=== PATIENT | female | born 1935 | race Asian ===

== ENCOUNTER → 2017-02-27 | Outpatient (CLI) | payer MEDICARE, OTHER ==
[~2017-02-27] MED LIST: ALEN70TA48 PO; ALLO100T PO; CALC500T62 PO; CLON1PAT16 TD; ERGO400T3 PO; FURO40 PO; HYDR-4173 PO; INSLAN SQ; LISI-660 PO; METO-323 PO; MULT240L3 PO; PANT40TA25 PO; SIMV-260 PO
[2017-02-27 11:17] LABS: BASOPHILS # (AUTO) 0.03 K/uL (0.00-0.20); BASOPHILS % (AUTO) 0.5 % (0.0-2.0); EOSINOPHILS # (AUTO) 0.44 K/uL (0.00-0.70); EOSINOPHILS % (AUTO) 6.72 % (1.0-6.0); HEMATOCRIT 36.5 % (36-46); HEMOGLOBIN 12.1 g/dL (12.0-16.0); LYMPHOCYTES # (AUTO) 1.4 K/uL (1.0-4.8); MEAN CORPUSCULAR HEMOGLOBIN 30.3 pg (26.0-34.0); MEAN CORPUSCULAR HGB CONC 33.2 G/dL (31.0-37.0); MEAN CORPUSCULAR VOLUME 91 fL (80-100); MONOCYTES # (AUTO) 0.4 K/uL (0.1-1.0); MONOCYTES % (AUTO) 5.9 % (2.0-9.0); NEUTROPHILS # (AUTO) 4.2 K/uL (1.8-7.7); NEUTROPHILS % (AUTO) 64.8 % (40.0-70.0); PLATELET COUNT (AUTO) 303 K/uL (150-450); RED BLOOD CELL COUNT(AUTO) 4.01 MIL/uL (4.00-5.20); RED CELL DISTRIBUTION WIDTH 16.1 % (11.5-14.5); WHITE BLOOD COUNT (AUTO) 6.5 K/uL (4.5-11.0)
[2017-02-27 11:24] LABS: INR 1.1 (0.9-1.1); PROTHROMBIN TIME 11.3 SEC (9.4-11.6)
[2017-02-27 11:24] LABS: APPEARANCE,URINE CLOUDY (CLEAR); GLUCOSE, URINE (UA) NEGATIVE (NEGATIVE); KETONES,URINE NEGATIVE (NEGATIVE); LEUKOCYTE ESTERASE ,URINE TRACE (NEGATIVE); OCCULT BLOOD,URINE NEGATIVE (NEGATIVE); PROTEIN,URINE NEGATIVE (NEGATIVE)
[2017-02-27 11:25] LABS: ANION GAP 9 mmol/L (8-16); CARBON DIOXIDE 27 mmol/L (22-29); CHLORIDE 99 mmol/L (98-107); CREATININE 0.71 mg/dL (0.60-1.30); GLOMERULAR FILTR. RATE CALC > 60 mL/min (>60); POTASSIUM 3.9 mmol/L (3.5-5.1); SODIUM SERUM 135 mmol/L (136-145); UREA NITROGEN, BLOOD 15 mg/dL (7-18)
[2017-02-27 12:35] LABS: RBC,URINE None Seen /HPF (0-2)
[2017-02-27 12:36] LABS: SQUAMOUS EPITHELIAL CELL,UR Few /LPF (None Seen)
== END | disposition home or self-care (01) ==
LOC: LABMN 10:55
PROVIDERS: ATTEND Surgery
DX: L72.3 Sebaceous cyst (principal); N39.0 Urinary tract infection, site not specified; I25.10 Atherosclerotic heart disease of native coronary artery without angina pectoris; D61.9 Aplastic anemia, unspecified; R78.89 Finding of other specified substances, not normally found in blood
CPT/HCPCS: 87086

== ENCOUNTER 2017-09-15 13:01 | Inpatient (IN) | payer MEDICARE, OTHER ==
[~2017-09-15] VITALS: Ht 152.4 cm; Wt 40.8 kg
[~2017-09-15 13:01] MED LIST changes: +CLON1PAT13 TD; -CLON1PAT16 TD; -METO-323 PO; +METO25XL PO
[2017-09-15] MEDS ORDERED: VALS160T2 PO (13:18)
[2017-09-15] MEDS ORDERED: CARV25 PO (13:18)
[2017-09-15] MEDS ORDERED: SIMV-260 PO (13:18)
[2017-09-15] MEDS ORDERED: OMEG10005 PO (13:18)
[2017-09-15] MEDS ORDERED: KDUR10 PO (13:18)
[2017-09-15] MEDS ORDERED: POTA8CAP10 PO (13:18)
[2017-09-15] MEDS ORDERED: ACETAMINOPHEN 1000 MG/ISO-OSM 100 ML IV ONE ×2 (13:45)
[2017-09-15 14:14] LABS: HEMATOCRIT 26.3 % (36-46); MEAN CORPUSCULAR HEMOGLOBIN 30.9 pg (26.0-34.0); MEAN CORPUSCULAR HGB CONC 34.2 G/dL (31.0-37.0); MEAN CORPUSCULAR VOLUME 90 fL (80-100); PLATELET COUNT (AUTO) 273 K/uL (150-450); RED BLOOD CELL COUNT(AUTO) 2.91 MIL/uL (4.00-5.20)
[2017-09-15 14:32] LABS: BAND NEUTROPHILS % (MANUAL) 11 % (1-5); BASOPHILS % (MANUAL) 1 % (0-2); LYMPHOCYTES % (MANUAL) 2 % (22-44); MONOCYTES % (MANUAL) 5 % (2-9); SEGMENTED NEUTROPHILS % 81 % (40-70)
[2017-09-15 14:34] LABS: ALBUMIN 2.9 g/dL (3.4-5.0); BILIRUBIN,TOTAL 0.6 mg/dL (0.1-1.0); CALCIUM, TOTAL 8.1 mg/dL (8.8-10.5); CREATININE 0.96 mg/dL (0.60-1.30); INR 1.2 (0.9-1.1); PROTHROMBIN TIME 12.3 SEC (9.4-11.6); TOTAL PROTEIN, SERUM 6.9 g/dL (6.4-8.2)
[2017-09-15 14:36] LABS: POTASSIUM 2.8 mmol/L (3.5-5.1)
[2017-09-15 14:39] LABS: LACTIC ACID 1.3 mmol/L (0.4-2.0)
[2017-09-15] MEDS ORDERED: POTASSIUM CHL 40 MEQ/D5-0.45NS 1,000 ML IV ONE (15:15)
[2017-09-15] MEDS ORDERED: AZITHROMYCIN 500 MG/NS 250 ML IV ONE (15:15)
[2017-09-15] MEDS ORDERED: IBUPROFEN 400 MG TABLET PO ONE (15:15)
[2017-09-15] MEDS ORDERED: PIPERACILLIN/TAZO 3.375 GM/D5W 50 ML IV ONE (15:15)
[2017-09-15 15:47] LABS: APPEARANCE,URINE TURBID (CLEAR); BILIRUBIN,URINE NEGATIVE (NEGATIVE); GLUCOSE, URINE (UA) NEGATIVE (NEGATIVE); KETONES,URINE NEGATIVE (NEGATIVE); LEUKOCYTE ESTERASE ,URINE SMALL (NEGATIVE); NITRATE,URINE NEGATIVE (NEGATIVE); OCCULT BLOOD,URINE NEGATIVE (NEGATIVE); PROTEIN,URINE POS 1+ (NEGATIVE)
[2017-09-15] MEDS ORDERED: 0.9% SODIUM CHLORIDE 10 ML SYRINGE IVP PRN (16:30)
[2017-09-15] MEDS ORDERED: ACETAMINOPHEN 325 MG TABLET PO PRN (16:30)
[2017-09-15] MEDS ORDERED: SODIUM CHLORIDE 0.9% 2,000 ML IV ONE (16:30)
[2017-09-15 16:47] LABS: BACTERIA,URINE Many /HPF (None Seen); RBC,URINE None Seen /HPF (0-2); SQUAMOUS EPITHELIAL CELL,UR Few /LPF (None Seen)
[2017-09-15 17:31] VITALS: BP 89/41
[2017-09-15] MEDS ORDERED: SODIUM CHLORIDE 0.9% 100 ML ONE (18:21)
[2017-09-15] MEDS ORDERED: INFLUENZA VIRUS VACCINE QVS 2017-18 (3YR+)/PF 60 MCG/0.5 ML SYRINGE IM ONE (19:00)
[2017-09-15 19:37] VITALS: BP 111/52
[2017-09-15] MEDS ORDERED: ALBUTEROL SULFATE 2.5 MG/0.5 ML NEB SOLUTION NEB PRN (21:15)
[2017-09-15] MEDS ORDERED: MAGNESIUM HYDROXIDE SUSPENSION 30 ML UDCUP PO PRN (21:15)
[2017-09-15] MEDS: PIPERACILLIN SODIUM/TAZOBACTAM 2.25 GM in DEXTROSE 5%-WATER 50 ML IV SCH (23:23)
[2017-09-15 23:31] VITALS: BP 96/47
[2017-09-15] MEDS: ACETAMINOPHEN 325 MG TABLET PO PRN (23:31)
[2017-09-16] VITALS (7 sets, daily range): BP systolic 106–129; BP diastolic 47–87
[2017-09-16] MEDS: PIPERACILLIN SODIUM/TAZOBACTAM 2.25 GM in DEXTROSE 5%-WATER 50 ML IV SCH ×4 (03:52→22:20)
[2017-09-16 06:15] LABS: EOSINOPHILS % (AUTO) 0.2 % (1.0-6.0); HEMATOCRIT 25.7 % (36-46); HEMOGLOBIN 8.7 g/dL (12.0-16.0); LYMPHOCYTES % (AUTO) 7.5 % (22.0-44.0); MEAN CORPUSCULAR HEMOGLOBIN 31.1 pg (26.0-34.0); MEAN CORPUSCULAR VOLUME 92 fL (80-100); MONOCYTES # (AUTO) 1.2 K/uL (0.1-1.0); MONOCYTES % (AUTO) 9.1 % (2.0-9.0); NEUTROPHILS % (AUTO) 83.2 % (40.0-70.0); PLATELET COUNT (AUTO) 269 K/uL (150-450); RED CELL DISTRIBUTION WIDTH 14.3 % (11.5-14.5)
[2017-09-16 06:51] LABS: ANION GAP 6 mmol/L (8-16); CALCIUM, TOTAL 8.3 mg/dL (8.8-10.5); CARBON DIOXIDE 25 mmol/L (22-29); CHLORIDE 107 mmol/L (98-107); CREATININE 0.76 mg/dL (0.60-1.30); GLOMERULAR FILTR. RATE CALC > 60 mL/min (>60); GLUCOSE,RANDOM 88 mg/dL (70-110); POTASSIUM 4.7 mmol/L (3.5-5.1); SODIUM SERUM 138 mmol/L (136-145); UREA NITROGEN, BLOOD 12 mg/dL (7-18)
[2017-09-16] MEDS: PANTOPRAZOLE SODIUM 40 MG DR TABLET PO SCH (09:28)
[2017-09-16] MEDS: HEPARIN SODIUM,PORCINE 5,000 UNITS/ML VIAL SQ SCH ×2 (09:28→20:24)
[2017-09-16] MEDS: ASPIRIN 81 MG CHEWABLE TABLET PO SCH (09:28)
[2017-09-16] MEDS: DOCUSATE SODIUM 100 MG CAPSULE PO SCH ×2 (09:28→21:00)
[2017-09-16] MEDS: OXYGEN THERAPY IH SCH ×2 (09:38→20:25)
[2017-09-16] MEDS: ACETAMINOPHEN 325 MG TABLET PO PRN (21:26)
[2017-09-17] VITALS (7 sets, daily range): BP systolic 122–151; BP diastolic 54–92
[2017-09-17] MEDS: PIPERACILLIN SODIUM/TAZOBACTAM 2.25 GM in DEXTROSE 5%-WATER 50 ML IV SCH ×4 (04:58→23:19)
[2017-09-17 05:53] LABS: BASOPHILS % (AUTO) 0.3 % (0.0-2.0); EOSINOPHILS % (AUTO) 1.3 % (1.0-6.0); HEMATOCRIT 24.9 % (36-46); HEMOGLOBIN 8.3 g/dL (12.0-16.0); LYMPHOCYTES # (AUTO) 0.9 K/uL (1.0-4.8); LYMPHOCYTES % (AUTO) 10.5 % (22.0-44.0); MEAN CORPUSCULAR HEMOGLOBIN 30.9 pg (26.0-34.0); MEAN CORPUSCULAR HGB CONC 33.5 G/dL (31.0-37.0); MEAN CORPUSCULAR VOLUME 92 fL (80-100); MONOCYTES # (AUTO) 0.7 K/uL (0.1-1.0); NEUTROPHILS # (AUTO) 7.2 K/uL (1.8-7.7); NEUTROPHILS % (AUTO) 79.9 % (40.0-70.0); PLATELET COUNT (AUTO) 286 K/uL (150-450); RED BLOOD CELL COUNT(AUTO) 2.69 MIL/uL (4.00-5.20); RED CELL DISTRIBUTION WIDTH 14.3 % (11.5-14.5)
[2017-09-17 06:27] LABS: ANION GAP 6 mmol/L (8-16); CALCIUM, TOTAL 8.2 mg/dL (8.8-10.5); CARBON DIOXIDE 27 mmol/L (22-29); CHLORIDE 104 mmol/L (98-107); CREATININE 0.73 mg/dL (0.60-1.30); GLOMERULAR FILTR. RATE CALC > 60 mL/min (>60); GLUCOSE,RANDOM 90 mg/dL (70-110); POTASSIUM 3.1 mmol/L (3.5-5.1); SODIUM SERUM 137 mmol/L (136-145); UREA NITROGEN, BLOOD 7 mg/dL (7-18)
[2017-09-17] MEDS: MULTIVITAMINS WITH MINERALS, THERAPEUTIC TABLET PO SCH (08:37)
[2017-09-17] MEDS: HEPARIN SODIUM,PORCINE 5,000 UNITS/ML VIAL SQ SCH ×2 (08:37→20:12)
[2017-09-17] MEDS: OXYGEN THERAPY IH SCH ×2 (08:37→20:12)
[2017-09-17] MEDS: DOCUSATE SODIUM 100 MG CAPSULE PO SCH ×2 (08:38→20:12)
[2017-09-17] MEDS: ASPIRIN 81 MG CHEWABLE TABLET PO SCH (08:38)
[2017-09-17] MEDS: LACTOBACILLUS ACIDOPHILUS/BULGARICUS TABLET PO SCH (08:38)
[2017-09-17] MEDS: PANTOPRAZOLE SODIUM 40 MG DR TABLET PO SCH (08:38)
[2017-09-17] MEDS ORDERED: SODIUM CHLORIDE 0.9% 250 ML IV ONE (22:27)
[2017-09-18 00:30] VITALS: BP 145/70
[2017-09-18] MEDS: PIPERACILLIN SODIUM/TAZOBACTAM 2.25 GM in DEXTROSE 5%-WATER 50 ML IV SCH ×3 (03:44→16:22)
[2017-09-18 05:42] VITALS: BP 146/67
[2017-09-18 07:12] VITALS: BP 146/65
[2017-09-18] MEDS: OXYGEN THERAPY IH SCH ×2 (08:00→20:00)
[2017-09-18] MEDS: MULTIVITAMINS WITH MINERALS, THERAPEUTIC TABLET PO SCH (08:15)
[2017-09-18] MEDS: ASPIRIN 81 MG CHEWABLE TABLET PO SCH (08:15)
[2017-09-18] MEDS: HEPARIN SODIUM,PORCINE 5,000 UNITS/ML VIAL SQ SCH ×2 (08:15→20:13)
[2017-09-18] MEDS: DOCUSATE SODIUM 100 MG CAPSULE PO SCH ×2 (08:15→20:12)
[2017-09-18] MEDS: LACTOBACILLUS ACIDOPHILUS/BULGARICUS TABLET PO SCH (08:15)
[2017-09-18] MEDS: PANTOPRAZOLE SODIUM 40 MG DR TABLET PO SCH (08:17)
[2017-09-18 09:05] LABS: BASOPHILS # (AUTO) 0.02 K/uL (0.00-0.20); BASOPHILS % (AUTO) 0.3 % (0.0-2.0); EOSINOPHILS # (AUTO) 0.12 K/uL (0.00-0.70); EOSINOPHILS % (AUTO) 1.79 % (1.0-6.0); HEMATOCRIT 28.4 % (36-46); HEMOGLOBIN 9.5 g/dL (12.0-16.0); LYMPHOCYTES # (AUTO) 1.3 K/uL (1.0-4.8); MEAN CORPUSCULAR HEMOGLOBIN 30.5 pg (26.0-34.0); MEAN CORPUSCULAR HGB CONC 33.3 G/dL (31.0-37.0); MEAN CORPUSCULAR VOLUME 91 fL (80-100); MONOCYTES # (AUTO) 0.4 K/uL (0.1-1.0); MONOCYTES % (AUTO) 5.8 % (2.0-9.0); PLATELET COUNT (AUTO) 412 K/uL (150-450); RED CELL DISTRIBUTION WIDTH 14.6 % (11.5-14.5)
[2017-09-18 09:13] LABS: ANION GAP 6 mmol/L (8-16); CALCIUM, TOTAL 8.5 mg/dL (8.8-10.5); CARBON DIOXIDE 28 mmol/L (22-29); CHLORIDE 101 mmol/L (98-107); CREATININE 0.69 mg/dL (0.60-1.30); GLOMERULAR FILTR. RATE CALC > 60 mL/min (>60); GLUCOSE,RANDOM 120 mg/dL (70-110); POTASSIUM 3.7 mmol/L (3.5-5.1); SODIUM SERUM 135 mmol/L (136-145); UREA NITROGEN, BLOOD 4 mg/dL (7-18)
[2017-09-18 11:31] VITALS: BP 144/67
[2017-09-18 15:05] VITALS: BP 125/71
[2017-09-18] MEDS ORDERED: CARV40CR PO (16:13)
[2017-09-18 20:00] VITALS: BP 148/71
[2017-09-18] MEDS: CefTRIAXone 1 GM/DEXTROSE 50 ML IV SCH (22:56)
[2017-09-19] VITALS (7 sets, daily range): BP systolic 127–159; BP diastolic 50–78
[2017-09-19 00:24] LABS: GLUCOMETER DEV NAME(LOC) 5N 1M; GLUCOSE,POINT OF CARE 97 MG/DL (70-110)
[2017-09-19 07:33] LABS: ALBUMIN 2.3 g/dL (3.4-5.0); BILIRUBIN,TOTAL 0.3 mg/dL (0.1-1.0)
[2017-09-19 07:40] LABS: BILIRUBIN,DIRECT 0.1 mg/dL (0.00-0.20)
[2017-09-19] MEDS: OXYGEN THERAPY IH SCH ×2 (08:00→20:00)
[2017-09-19] MEDS: DOCUSATE SODIUM 100 MG CAPSULE PO SCH ×2 (08:27→20:28)
[2017-09-19] MEDS: ASPIRIN 81 MG CHEWABLE TABLET PO SCH (08:27)
[2017-09-19] MEDS: HEPARIN SODIUM,PORCINE 5,000 UNITS/ML VIAL SQ SCH ×2 (08:28→20:28)
[2017-09-19] MEDS: MULTIVITAMINS WITH MINERALS, THERAPEUTIC TABLET PO SCH (08:28)
[2017-09-19] MEDS: LACTOBACILLUS ACIDOPHILUS/BULGARICUS TABLET PO SCH (08:28)
[2017-09-19] MEDS: PANTOPRAZOLE SODIUM 40 MG DR TABLET PO SCH (08:28)
[2017-09-19] MEDS: CefTRIAXone 1 GM/DEXTROSE 50 ML IV SCH (22:16)
[2017-09-20 05:06] VITALS: BP 144/64
[2017-09-20 06:33] LABS: ANION GAP 8 mmol/L (8-16); CALCIUM, TOTAL 8.8 mg/dL (8.8-10.5); CARBON DIOXIDE 29 mmol/L (22-29); CHLORIDE 102 mmol/L (98-107); CREATININE 0.78 mg/dL (0.60-1.30); GLOMERULAR FILTR. RATE CALC > 60 mL/min (>60); GLUCOSE,RANDOM 88 mg/dL (70-110); SODIUM SERUM 139 mmol/L (136-145); UREA NITROGEN, BLOOD 8 mg/dL (7-18)
[2017-09-20 06:48] LABS: BASOPHILS % (AUTO) 0.8 % (0.0-2.0); EOSINOPHILS % (AUTO) 5.9 % (1.0-6.0); HEMATOCRIT 29.5 % (36-46); HEMOGLOBIN 9.9 g/dL (12.0-16.0); LYMPHOCYTES % (AUTO) 17.4 % (22.0-44.0); MEAN CORPUSCULAR HEMOGLOBIN 30.7 pg (26.0-34.0); MEAN CORPUSCULAR HGB CONC 33.4 G/dL (31.0-37.0); MEAN CORPUSCULAR VOLUME 92 fL (80-100); MONOCYTES # (AUTO) 0.4 K/uL (0.1-1.0); MONOCYTES % (AUTO) 6.6 % (2.0-9.0); NEUTROPHILS # (AUTO) 4.1 K/uL (1.8-7.7); NEUTROPHILS % (AUTO) 69.3 % (40.0-70.0); PLATELET COUNT (AUTO) 567 K/uL (150-450); RED BLOOD CELL COUNT(AUTO) 3.21 MIL/uL (4.00-5.20); RED CELL DISTRIBUTION WIDTH 14.4 % (11.5-14.5)
[2017-09-20 07:46] VITALS: BP 142/63
[2017-09-20] MEDS: OXYGEN THERAPY IH SCH (08:00)
[2017-09-20] MEDS: ASPIRIN 81 MG CHEWABLE TABLET PO SCH (08:13)
[2017-09-20] MEDS: DOCUSATE SODIUM 100 MG CAPSULE PO SCH (08:13)
[2017-09-20] MEDS: LACTOBACILLUS ACIDOPHILUS/BULGARICUS TABLET PO SCH (08:13)
[2017-09-20] MEDS: HEPARIN SODIUM,PORCINE 5,000 UNITS/ML VIAL SQ SCH (08:14)
[2017-09-20] MEDS: PANTOPRAZOLE SODIUM 40 MG DR TABLET PO SCH (08:14)
[2017-09-20] MEDS: MULTIVITAMINS WITH MINERALS, THERAPEUTIC TABLET PO SCH (08:14)
[2017-09-20] MEDS: ACETAMINOPHEN 325 MG TABLET PO PRN (08:20)
[2017-09-20 11:31] VITALS: BP 144/59
[2017-09-20] MEDS: CefTRIAXone 1 GM/DEXTROSE 50 ML IV SCH (15:13)
[2017-09-20 15:27] VITALS: BP 135/63
== END 2017-09-20 17:00 | DRG 871 ==
LOC: EMS 13:06 → 5S 16:55
PROVIDERS: ADMIT Internal Medicine; ATTEND Internal Medicine
PROC: 3E0234Z Introduction of Serum, Toxoid and Vaccine into Muscle, Percutaneous Approach (ICD-10-PCS; principal; 2017-09-19)
DX: A41.9 Sepsis, unspecified organism (principal); E43 Unspecified severe protein-calorie malnutrition; I11.0 Hypertensive heart disease with heart failure; E86.0 Dehydration; I50.22 Chronic systolic (congestive) heart failure; I35.1 Nonrheumatic aortic (valve) insufficiency; J44.9 Chronic obstructive pulmonary disease, unspecified; R64 Cachexia; Z68.1 Body mass index [BMI] 19.9 or less, adult; N39.0 Urinary tract infection, site not specified; B96.20 Unspecified Escherichia coli [E. coli] as the cause of diseases classified elsewhere; I25.10 Atherosclerotic heart disease of native coronary artery without angina pectoris; J45.909 Unspecified asthma, uncomplicated; H40.9 Unspecified glaucoma; E87.6 Hypokalemia; E78.00 Pure hypercholesterolemia, unspecified; M19.90 Unspecified osteoarthritis, unspecified site; E78.5 Hyperlipidemia, unspecified; Z87.440 Personal history of urinary (tract) infections; Z95.1 Presence of aortocoronary bypass graft; Z79.899 Other long term (current) drug therapy; Z87.01 Personal history of pneumonia (recurrent); I25.2 Old myocardial infarction; Z87.891 Personal history of nicotine dependence; Z90.49 Acquired absence of other specified parts of digestive tract; Z79.4 Long term (current) use of insulin; Z82.49 Family history of ischemic heart disease and other diseases of the circulatory system; Z23 Encounter for immunization
CPT/HCPCS: 74176; 82962; 83605; 84132; 87040; 87086; 90471; 93306; 96365; 96366; 96367; 96375; 97162; 97530; 99291; J0131; J0456; J0696; J1644; J2543; J3480; J7030; J7050; J7060

== ENCOUNTER 2017-09-30 10:34 | Inpatient (IN) | payer MEDICARE, OTHER ==
[~2017-09-30] VITALS: Ht 152.4 cm; Wt 42.1 kg
[~2017-09-30 10:34] MED LIST changes: -ALEN70TA48 PO; -ALLO100T PO; -CALC500T62 PO; +CARV40CR PO; -CLON1PAT13 TD; -ERGO400T3 PO; -FURO40 PO; -INSLAN SQ; +KDUR10 PO; -LISI-660 PO; -METO25XL PO; -MULT240L3 PO; +OMEG10005 PO; -PANT40TA25 PO; +VALS160T2 PO
[2017-09-30] MEDS ORDERED: SODIUM CHLORIDE 0.9% 500 ML IV ONE ×3 (11:00→15:45)
[2017-09-30 11:48] LABS: BASOPHILS % (AUTO) 0.3 % (0.0-2.0); EOSINOPHILS % (AUTO) 0.2 % (1.0-6.0); HEMATOCRIT 28.4 % (36-46); HEMOGLOBIN 9.7 g/dL (12.0-16.0); LYMPHOCYTES # (AUTO) 0.7 K/uL (1.0-4.8); LYMPHOCYTES % (AUTO) 6.4 % (22.0-44.0); MEAN CORPUSCULAR HEMOGLOBIN 30.8 pg (26.0-34.0); MEAN CORPUSCULAR HGB CONC 34.1 G/dL (31.0-37.0); MEAN CORPUSCULAR VOLUME 90 fL (80-100); MONOCYTES # (AUTO) 0.4 K/uL (0.1-1.0); MONOCYTES % (AUTO) 4.3 % (2.0-9.0); NEUTROPHILS % (AUTO) 88.8 % (40.0-70.0); PLATELET COUNT (AUTO) 626 K/uL (150-450); RED BLOOD CELL COUNT(AUTO) 3.15 MIL/uL (4.00-5.20); RED CELL DISTRIBUTION WIDTH 15.5 % (11.5-14.5); WHITE BLOOD COUNT (AUTO) 10.1 K/uL (4.5-11.0)
[2017-09-30 11:52] LABS: ALBUMIN 2.8 g/dL (3.4-5.0); BILIRUBIN,TOTAL 0.5 mg/dL (0.1-1.0); CALCIUM, TOTAL 8.1 mg/dL (8.8-10.5); CREATININE 2.53 mg/dL (0.60-1.30); POTASSIUM 3.8 mmol/L (3.5-5.1); TOTAL PROTEIN, SERUM 5.8 g/dL (6.4-8.2)
[2017-09-30 12:00] LABS: LACTIC ACID 0.7 mmol/L (0.4-2.0)
[2017-09-30 12:12] LABS: APPEARANCE,URINE CLOUDY (CLEAR); GLUCOSE, URINE (UA) NEGATIVE (NEGATIVE); KETONES,URINE TRACE mg/dL (NEGATIVE); LEUKOCYTE ESTERASE ,URINE NEGATIVE (NEGATIVE); OCCULT BLOOD,URINE NEGATIVE (NEGATIVE); PROTEIN,URINE NEGATIVE (NEGATIVE)
[2017-09-30 12:15] LABS: RBC,URINE None Seen /HPF (0-2); SQUAMOUS EPITHELIAL CELL,UR Many /LPF (None Seen); WBC,URINE 0-2 /HPF (0-5)
[2017-09-30] MEDS ORDERED: BARIUM SULFATE 0.1% SUSPENSION 450 ML BOTTLE PO ONE (12:15)
[2017-09-30] MEDS ORDERED: ONDANSETRON HCL 4 MG/2 ML VIAL IVP ONE (12:30)
[2017-09-30 14:07] LABS: CALCIUM, TOTAL 8.4 mg/dL (8.8-10.5); CREATININE 2.34 mg/dL (0.60-1.30); POTASSIUM 4.1 mmol/L (3.5-5.1)
[2017-09-30 15:47] LABS: INR 1.1 (0.9-1.1); PROTHROMBIN TIME 11.2 SEC (9.4-11.6)
[2017-09-30] MEDS ORDERED: ONDANSETRON HCL 4 MG/2 ML VIAL IVP PRN ×2 (16:00→16:30)
[2017-09-30] MEDS ORDERED: ACETAMINOPHEN 325 MG TABLET PO PRN ×2 (16:00→16:30)
[2017-09-30] MEDS ORDERED: 0.9% SODIUM CHLORIDE 10 ML SYRINGE IVP PRN (16:00)
[2017-09-30] MEDS ORDERED: MAGNESIUM HYDROXIDE SUSPENSION 30 ML UDCUP PO PRN (16:30)
[2017-09-30] MEDS ORDERED: BISACODYL 10 MG RECTAL RECTAL SUPPOSITORY PR PRN (16:30)
[2017-09-30] MEDS ORDERED: ZOLPIDEM TARTRATE 5 MG TABLET PO PRN (16:30)
[2017-09-30] MEDS ORDERED: MORPHINE SULFATE 2 MG/ML SYRINGE IVP PRN (16:30)
[2017-09-30] MEDS ORDERED: SODIUM CHLORIDE 0.9% 1,000 ML IV ONE (16:30)
[2017-09-30] MEDS ORDERED: HydrALAZINE HCL 20 MG/ML VIAL IVP PRN (16:30)
[2017-09-30 16:50] VITALS: BP 103/51
[2017-09-30 19:41] VITALS: BP 92/46
[2017-09-30] MEDS: DOCUSATE SODIUM 100 MG CAPSULE PO SCH (21:00)
[2017-09-30 23:37] VITALS: BP 93/50
[2017-10-01] MEDS: HEPARIN SODIUM,PORCINE 5,000 UNITS/ML VIAL SQ SCH ×4 (00:32→23:49)
[2017-10-01 05:31] VITALS: BP 95/49
[2017-10-01 06:06] LABS: HEMATOCRIT 28.9 % (36-46); HEMOGLOBIN 9.7 g/dL (12.0-16.0); MEAN CORPUSCULAR HEMOGLOBIN 30.5 pg (26.0-34.0); MEAN CORPUSCULAR HGB CONC 33.5 G/dL (31.0-37.0); MEAN CORPUSCULAR VOLUME 91 fL (80-100); PLATELET COUNT (AUTO) 499 K/uL (150-450); RED BLOOD CELL COUNT(AUTO) 3.18 MIL/uL (4.00-5.20); RED CELL DISTRIBUTION WIDTH 15.4 % (11.5-14.5); WHITE BLOOD COUNT (AUTO) 9.4 K/uL (4.5-11.0)
[2017-10-01 06:21] LABS: CALCIUM, TOTAL 8.1 mg/dL (8.8-10.5); CREATININE 1.8 mg/dL (0.60-1.30); MAGNESIUM 3.9 mg/dL (1.80-2.40); PHOSPHORUS 3.7 mg/dL (2.5-4.9)
[2017-10-01 07:28] VITALS: BP 88/47
[2017-10-01] MEDS ORDERED: ALBUMIN HUMAN 5%-12.5GM/250ML 250 ML IV ONE (08:30)
[2017-10-01 08:44] LABS: BAND NEUTROPHILS % (MANUAL) 18 % (1-5); LYMPHOCYTES % (MANUAL) 7 % (22-44); TOTAL CELLS COUNTED 100
[2017-10-01 08:45] LABS: RBC MORPHOLOGY COMMENT NORMAL RBC MORPH
[2017-10-01] MEDS: PANTOPRAZOLE SODIUM 40 MG DR TABLET PO SCH (09:07)
[2017-10-01] MEDS: DOCUSATE SODIUM 100 MG CAPSULE PO SCH (09:07)
[2017-10-01] MEDS: SIMVASTATIN 20 MG TABLET PO SCH (09:08)
[2017-10-01] MEDS ORDERED: BISACODYL 10 MG RECTAL RECTAL SUPPOSITORY PR ONE (09:15)
[2017-10-01] MEDS ORDERED: BISACODYL 5 MG EC TABLET PO SCH (09:30)
[2017-10-01] MEDS ORDERED: SODIUM CHLORIDE 0.9% 500 ML IV ONE (09:58)
[2017-10-01 11:32] VITALS: BP 117/54
[2017-10-01] MEDS: DEXTROSE 5%-0.9% SODIUM CHL 1,000 ML IV SCH (12:13)
[2017-10-01 15:30] VITALS: BP 98/45
[2017-10-01] MEDS: BISACODYL 10 MG RECTAL RECTAL SUPPOSITORY PR SCH ×2 (15:52→21:42)
[2017-10-01 19:59] VITALS: BP 102/56
[2017-10-02 00:13] VITALS: BP 108/46
[2017-10-02] MEDS: DEXTROSE 5%-0.9% SODIUM CHL 1,000 ML IV SCH (01:40)
[2017-10-02 03:46] VITALS: BP 116/55
[2017-10-02 06:34] LABS: BASOPHILS % (AUTO) 0.2 % (0.0-2.0); EOSINOPHILS % (AUTO) 1.5 % (1.0-6.0); HEMOGLOBIN 8.7 g/dL (12.0-16.0); LYMPHOCYTES # (AUTO) 0.5 K/uL (1.0-4.8); LYMPHOCYTES % (AUTO) 6.5 % (22.0-44.0); MEAN CORPUSCULAR HEMOGLOBIN 30.6 pg (26.0-34.0); MEAN CORPUSCULAR HGB CONC 33.4 G/dL (31.0-37.0); MEAN CORPUSCULAR VOLUME 91 fL (80-100); MONOCYTES # (AUTO) 0.5 K/uL (0.1-1.0); MONOCYTES % (AUTO) 6.7 % (2.0-9.0); NEUTROPHILS % (AUTO) 85.1 % (40.0-70.0); PLATELET COUNT (AUTO) 460 K/uL (150-450); RED BLOOD CELL COUNT(AUTO) 2.84 MIL/uL (4.00-5.20); RED CELL DISTRIBUTION WIDTH 15.2 % (11.5-14.5); WHITE BLOOD COUNT (AUTO) 7.1 K/uL (4.5-11.0)
[2017-10-02 07:01] VITALS: BP 120/48
[2017-10-02 07:04] LABS: ANION GAP 6 mmol/L (8-16); CALCIUM, TOTAL 7.8 mg/dL (8.8-10.5); CARBON DIOXIDE 30 mmol/L (22-29); CHLORIDE 99 mmol/L (98-107); CREATININE 0.82 mg/dL (0.60-1.30); GLOMERULAR FILTR. RATE CALC > 60 mL/min (>60); PHOSPHORUS 1.7 mg/dL (2.5-4.9); SODIUM SERUM 135 mmol/L (136-145); UREA NITROGEN, BLOOD 35 mg/dL (7-18)
[2017-10-02] MEDS: PANTOPRAZOLE SODIUM 40 MG DR TABLET PO SCH (09:33)
[2017-10-02] MEDS: BISACODYL 10 MG RECTAL RECTAL SUPPOSITORY PR SCH ×2 (09:33→20:23)
[2017-10-02] MEDS: SIMVASTATIN 20 MG TABLET PO SCH (09:33)
[2017-10-02] MEDS: HEPARIN SODIUM,PORCINE 5,000 UNITS/ML VIAL SQ SCH ×3 (09:33→23:51)
[2017-10-02] MEDS ORDERED: POTASSIUM CHLORIDE 20 MEQ ER TABLET PO PRN (10:45)
[2017-10-02 11:28] VITALS: BP 120/49
[2017-10-02] MEDS: POTASSIUM PHOS/SODIUM PHOS MIXTURE 1 POWDER PACKET PO SCH ×2 (13:36→20:24)
[2017-10-02 15:00] VITALS: BP 116/58
[2017-10-02 19:25] VITALS: BP 133/57
[2017-10-03] VITALS (7 sets, daily range): BP systolic 110–137; BP diastolic 48–72
[2017-10-03 07:29] LABS: BASOPHILS # (AUTO) 0.02 K/uL (0.00-0.20); BASOPHILS % (AUTO) 0.2 % (0.0-2.0); EOSINOPHILS # (AUTO) 0.09 K/uL (0.00-0.70); EOSINOPHILS % (AUTO) 1.43 % (1.0-6.0); HEMATOCRIT 28.8 % (36-46); HEMOGLOBIN 9.4 g/dL (12.0-16.0); LYMPHOCYTES # (AUTO) 0.7 K/uL (1.0-4.8); LYMPHOCYTES % (AUTO) 10.8 % (22.0-44.0); MEAN CORPUSCULAR HEMOGLOBIN 30.3 pg (26.0-34.0); MEAN CORPUSCULAR HGB CONC 32.8 G/dL (31.0-37.0); MEAN CORPUSCULAR VOLUME 92 fL (80-100); MONOCYTES # (AUTO) 0.5 K/uL (0.1-1.0); NEUTROPHILS # (AUTO) 5.1 K/uL (1.8-7.7); NEUTROPHILS % (AUTO) 79.6 % (40.0-70.0); PLATELET COUNT (AUTO) 447 K/uL (150-450); RED BLOOD CELL COUNT(AUTO) 3.11 MIL/uL (4.00-5.20); RED CELL DISTRIBUTION WIDTH 15.2 % (11.5-14.5); WHITE BLOOD COUNT (AUTO) 6.4 K/uL (4.5-11.0)
[2017-10-03 07:57] LABS: ANION GAP 4 mmol/L (8-16); CALCIUM, TOTAL 8.5 mg/dL (8.8-10.5); CARBON DIOXIDE 33 mmol/L (22-29); CHLORIDE 99 mmol/L (98-107); GLOMERULAR FILTR. RATE CALC > 60 mL/min (>60); POTASSIUM 4.5 mmol/L (3.5-5.1); SODIUM SERUM 136 mmol/L (136-145); UREA NITROGEN, BLOOD 21 mg/dL (7-18)
[2017-10-03] MEDS: PANTOPRAZOLE SODIUM 40 MG DR TABLET PO SCH (08:29)
[2017-10-03] MEDS: HEPARIN SODIUM,PORCINE 5,000 UNITS/ML VIAL SQ SCH ×3 (08:29→23:45)
[2017-10-03] MEDS: SIMVASTATIN 20 MG TABLET PO SCH (08:29)
[2017-10-03] MEDS ORDERED: SODIUM CHLORIDE 0.9% 500 ML IV ONE (11:30)
[2017-10-04 05:26] VITALS: BP 127/68
[2017-10-04 06:36] LABS: ANION GAP 16 mmol/L (8-16); CALCIUM, TOTAL 8.5 mg/dL (8.8-10.5); CARBON DIOXIDE 24 mmol/L (22-29); CHLORIDE 98 mmol/L (98-107); CREATININE 0.79 mg/dL (0.60-1.30); GLOMERULAR FILTR. RATE CALC > 60 mL/min (>60); POTASSIUM 3.9 mmol/L (3.5-5.1); SODIUM SERUM 138 mmol/L (136-145); UREA NITROGEN, BLOOD 20 mg/dL (7-18)
[2017-10-04 07:14] VITALS: BP 130/69
[2017-10-04] MEDS: HEPARIN SODIUM,PORCINE 5,000 UNITS/ML VIAL SQ SCH ×3 (08:00→23:50)
[2017-10-04] MEDS: PANTOPRAZOLE SODIUM 40 MG DR TABLET PO SCH (09:00)
[2017-10-04] MEDS: SIMVASTATIN 20 MG TABLET PO SCH (09:00)
[2017-10-04 10:33] VITALS: BP 121/65
[2017-10-04] MEDS ORDERED: SODIUM CHLORIDE 0.9% 1,000 ML IV ONE (11:03)
[2017-10-04] MEDS: SODIUM CHLORIDE 0.9% 1,000 ML IV SCH (11:43)
[2017-10-04 15:36] VITALS: BP 100/56
[2017-10-04 20:10] VITALS: BP 99/50
[2017-10-04 23:05] VITALS: BP 99/49
[2017-10-05 04:38] VITALS: BP 111/55
[2017-10-05 07:27] LABS: CREATININE 0.89 mg/dL (0.60-1.30); MAGNESIUM 2.3 mg/dL (1.80-2.40); PHOSPHORUS 2.5 mg/dL (2.5-4.9)
[2017-10-05 07:43] VITALS: BP 102/55
[2017-10-05] MEDS: SODIUM CHLORIDE 0.9% 1,000 ML IV SCH (07:57)
[2017-10-05] MEDS: HEPARIN SODIUM,PORCINE 5,000 UNITS/ML VIAL SQ SCH ×3 (08:04→23:35)
[2017-10-05 12:14] VITALS: BP 91/52
[2017-10-05] MEDS: BISACODYL 10 MG RECTAL RECTAL SUPPOSITORY PR SCH ×2 (14:50→20:08)
[2017-10-05] MEDS: SIMVASTATIN 20 MG TABLET PO SCH (14:50)
[2017-10-05] MEDS: METOCLOPRAMIDE HCL 5 MG/ML 2 ML VIAL IVP SCH ×3 (14:50→20:08)
[2017-10-05] MEDS: PANTOPRAZOLE SODIUM 40 MG DR TABLET PO SCH (14:51)
[2017-10-05 15:27] VITALS: BP 104/50
[2017-10-05 20:06] VITALS: BP 98/47
[2017-10-05 20:25] VITALS: BP 106/54
[2017-10-05] MEDS: HYDROCODONE/ACETAMINOPHEN 5-325 MG TABLET PO PRN (20:27)
[2017-10-06] VITALS (7 sets, daily range): BP systolic 99–144; BP diastolic 52–84
[2017-10-06] MEDS: SODIUM CHLORIDE 0.9% 1,000 ML IV SCH ×2 (03:23→23:30)
[2017-10-06 06:45] LABS: ANION GAP 8 mmol/L (8-16); CARBON DIOXIDE 26 mmol/L (22-29); CHLORIDE 104 mmol/L (98-107); GLOMERULAR FILTR. RATE CALC > 60 mL/min (>60); PHOSPHORUS 1.8 mg/dL (2.5-4.9); POTASSIUM 3.7 mmol/L (3.5-5.1); SODIUM SERUM 138 mmol/L (136-145); UREA NITROGEN, BLOOD 22 mg/dL (7-18)
[2017-10-06] MEDS: SIMVASTATIN 20 MG TABLET PO SCH (08:11)
[2017-10-06] MEDS: HEPARIN SODIUM,PORCINE 5,000 UNITS/ML VIAL SQ SCH ×2 (08:11→16:37)
[2017-10-06] MEDS: PANTOPRAZOLE SODIUM 40 MG DR TABLET PO SCH (08:12)
[2017-10-06] MEDS: BISACODYL 10 MG RECTAL RECTAL SUPPOSITORY PR SCH (08:12)
[2017-10-06] MEDS: METOCLOPRAMIDE HCL 5 MG/ML 2 ML VIAL IVP SCH (08:53)
[2017-10-06] MEDS ORDERED: LACTOBAC ACID/BULG/BIFID/THERM TABLET PO SCH (09:00)
[2017-10-06] MEDS: LACTOBAC ACID/BULG/BIFID/THERM TABLET PO SCH (09:40)
[2017-10-07] VITALS (7 sets, daily range): BP systolic 96–115; BP diastolic 49–59
[2017-10-07] MEDS: HEPARIN SODIUM,PORCINE 5,000 UNITS/ML VIAL SQ SCH ×4 (01:27→23:33)
[2017-10-07] MEDS ORDERED: POTASSIUM PHOS/SODIUM PHOS MIXTURE 1 POWDER PACKET PO SCH (09:00)
[2017-10-07] MEDS ORDERED: SODIUM PHOS,M-BASIC-D-BASIC 20 MEQ in DEXTROSE 5%-WATER 100 ML IV ONE (09:00)
[2017-10-07] MEDS: PANTOPRAZOLE SODIUM 40 MG DR TABLET PO SCH (09:06)
[2017-10-07] MEDS: LACTOBAC ACID/BULG/BIFID/THERM TABLET PO SCH (09:06)
[2017-10-07] MEDS: SIMVASTATIN 20 MG TABLET PO SCH (09:06)
[2017-10-07] MEDS: HYDROCODONE/ACETAMINOPHEN 5-325 MG TABLET PO PRN (20:06)
[2017-10-08 04:34] VITALS: BP 115/59
[2017-10-08 07:36] VITALS: BP 111/65
[2017-10-08] MEDS: PANTOPRAZOLE SODIUM 40 MG DR TABLET PO SCH (08:31)
[2017-10-08] MEDS: HEPARIN SODIUM,PORCINE 5,000 UNITS/ML VIAL SQ SCH ×2 (08:31→16:00)
[2017-10-08] MEDS: LACTOBAC ACID/BULG/BIFID/THERM TABLET PO SCH (08:31)
[2017-10-08] MEDS: SIMVASTATIN 20 MG TABLET PO SCH (08:32)
[2017-10-08 09:11] LABS: ANION GAP 13 mmol/L (8-16); CALCIUM, TOTAL 7.8 mg/dL (8.8-10.5); CARBON DIOXIDE 23 mmol/L (22-29); CHLORIDE 105 mmol/L (98-107); CREATININE 0.75 mg/dL (0.60-1.30); GLOMERULAR FILTR. RATE CALC > 60 mL/min (>60); PHOSPHORUS 2.4 mg/dL (2.5-4.9); POTASSIUM 4.1 mmol/L (3.5-5.1); SODIUM SERUM 141 mmol/L (136-145); UREA NITROGEN, BLOOD 21 mg/dL (7-18)
[2017-10-08 10:50] VITALS: BP 94/49
[2017-10-08 15:17] VITALS: BP 107/63
== END 2017-10-08 18:20 | disposition home health service (06) | DRG 388 ==
LOC: EMS 10:35 → 5S 15:45
PROVIDERS: ADMIT Internal Medicine; ATTEND Internal Medicine
PROC: 0D9670Z Drainage of Stomach with Drainage Device, Via Natural or Artificial Opening (ICD-10-PCS; principal; 2017-09-30)
DX: K56.609 Unspecified intestinal obstruction, unspecified as to partial versus complete obstruction (principal); E43 Unspecified severe protein-calorie malnutrition; N17.9 Acute kidney failure, unspecified; I95.9 Hypotension, unspecified; I13.0 Hypertensive heart and chronic kidney disease with heart failure and stage 1 through stage 4 chronic kidney disease, or unspecified chronic kidney disease; I50.9 Heart failure, unspecified; E87.1 Hypo-osmolality and hyponatremia; D63.8 Anemia in other chronic diseases classified elsewhere; E83.39 Other disorders of phosphorus metabolism; Z95.1 Presence of aortocoronary bypass graft; Z68.1 Body mass index [BMI] 19.9 or less, adult; E78.00 Pure hypercholesterolemia, unspecified; E78.5 Hyperlipidemia, unspecified; E87.6 Hypokalemia; N18.9 Chronic kidney disease, unspecified; M19.90 Unspecified osteoarthritis, unspecified site; Z90.49 Acquired absence of other specified parts of digestive tract; I25.2 Old myocardial infarction; Z79.899 Other long term (current) drug therapy; Z87.891 Personal history of nicotine dependence
CPT/HCPCS: 74010; 74022; 74176; 74249; 82570; 83605; 83735; 83935; 84100; 84132; 84300; 84540; 87040; 87081; 87324; 87449; 93005; 96361; 96374; 97116; 97162; 97166; 97530; 99285; J1644; J2405; J2765; J3490; J7030; J7040; J7042; J7060; P9041

== ENCOUNTER 2017-11-06 14:47 | Inpatient (IN) | payer MEDICARE, OTHER ==
[~2017-11-06] VITALS: Ht 152.4 cm; Wt 40.1 kg
[~2017-11-06 14:47] MED LIST changes: -CARV40CR PO; -HYDR-4173 PO; -KDUR10 PO; -VALS160T2 PO
[2017-11-06] MEDS ORDERED: SODIUM CHLORIDE 0.9% 1,000 ML IV ONE ×2 (15:45→16:45)
[2017-11-06] MEDS ORDERED: ACETAMINOPHEN 1000 MG/ISO-OSM 100 ML IV ONE (16:45)
[2017-11-06 16:53] LABS: EOSINOPHILS % (AUTO) 0 % (1.0-6.0); HEMATOCRIT 24.6 % (36-46); HEMOGLOBIN 8.2 g/dL (12.0-16.0); LYMPHOCYTES # (AUTO) 1.2 K/uL (1.0-4.8); LYMPHOCYTES % (AUTO) 8.8 % (22.0-44.0); MEAN CORPUSCULAR HEMOGLOBIN 30.2 pg (26.0-34.0); MEAN CORPUSCULAR HGB CONC 33.5 G/dL (31.0-37.0); MEAN CORPUSCULAR VOLUME 90 fL (80-100); MONOCYTES # (AUTO) 0.4 K/uL (0.1-1.0); MONOCYTES % (AUTO) 2.9 % (2.0-9.0); NEUTROPHILS # (AUTO) 11.8 K/uL (1.8-7.7); NEUTROPHILS % (AUTO) 88.3 % (40.0-70.0); PLATELET COUNT (AUTO) 606 K/uL (150-450); RED BLOOD CELL COUNT(AUTO) 2.73 MIL/uL (4.00-5.20); RED CELL DISTRIBUTION WIDTH 20.2 % (11.5-14.5); WHITE BLOOD COUNT (AUTO) 13.4 K/uL (4.5-11.0)
[2017-11-06 16:58] LABS: ANION GAP 12 mmol/L (8-16); CALCIUM, TOTAL 8.4 mg/dL (8.8-10.5); CARBON DIOXIDE 28 mmol/L (22-29); CHLORIDE 96 mmol/L (98-107); CREATININE 0.92 mg/dL (0.60-1.30); GLOMERULAR FILTR. RATE CALC 58 mL/min (>60); POTASSIUM 3.3 mmol/L (3.5-5.1); SODIUM SERUM 136 mmol/L (136-145); UREA NITROGEN, BLOOD 15 mg/dL (7-18)
[2017-11-06 17:04] LABS: ALANINE AMINOTRANSFERASE 18 U/L (12-78); ALBUMIN 2.5 g/dL (3.4-5.0); ASPARTATE AMINOTRANSFERASE 36 U/L (15-37); BILIRUBIN,TOTAL 1.1 mg/dL (0.1-1.0); CREATINE KINASE, TOTAL 71 U/L (26-192)
[2017-11-06] MEDS ORDERED: IPRATROPIUM BROMIDE 0.5 MG/2.5 ML NEB SOLUTION NEB ONE (17:15)
[2017-11-06] MEDS ORDERED: ALBUTEROL SULFATE 2.5 MG/0.5 ML NEB SOLUTION NEB ONE (17:15)
[2017-11-06 17:22] LABS: LACTIC ACID 3.3 mmol/L (0.4-2.0)
[2017-11-06 17:26] LABS: B-TYPE NATRIURETIC PEPTIDE 515 pg/mL (0-100)
[2017-11-06] MEDS ORDERED: PIPERACILLIN/TAZO 3.375 GM/D5W 50 ML IV ONE (17:30)
[2017-11-06] MEDS ORDERED: VANCOMYCIN HCL 1 GM/D5% WATER 200 ML IV ONE (17:30)
[2017-11-06 17:49] LABS: RBC MORPHOLOGY COMMENT DIMORPHIC RBC
[2017-11-06 18:08] LABS: INFLUENZA TYPE B NEGATIVE FOR TYPE B (NEGATIVE)
[2017-11-06 18:08] LABS: APPEARANCE,URINE TURBID (CLEAR); GLUCOSE, URINE (UA) NEGATIVE (NEGATIVE); KETONES,URINE TRACE mg/dL (NEGATIVE); LEUKOCYTE ESTERASE ,URINE MODERATE (NEGATIVE); OCCULT BLOOD,URINE MODERATE (NEGATIVE); PROTEIN,URINE SEE CONFIRM (NEGATIVE)
[2017-11-06] MEDS ORDERED: OSELTAMIVIR PHOSPHATE 75 MG CAPSULE PO ONE (18:15)
[2017-11-06 18:19] LABS: ADD UA MICROSCOPIC YES; SULFOSALICYLIC ACID,URINE 3+ (Negative)
[2017-11-06 18:20] LABS: WBC,URINE >100 /HPF (0-5)
[2017-11-06 18:41] LABS: REFLEX LACTIC ACID? YES YES
[2017-11-06] MEDS ORDERED: 0.9% SODIUM CHLORIDE 10 ML SYRINGE IVP PRN (21:15)
[2017-11-06] MEDS ORDERED: ONDANSETRON HCL 4 MG/2 ML VIAL IVP PRN ×2 (21:15→22:15)
[2017-11-06] MEDS ORDERED: ACETAMINOPHEN 325 MG TABLET PO PRN ×2 (21:15→22:15)
[2017-11-06] MEDS ORDERED: POTASSIUM CHLORIDE 20 MEQ ER TABLET PO ONE (21:30)
[2017-11-06 22:10] VITALS: BP 127/75
[2017-11-06] MEDS ORDERED: MORPHINE SULFATE 2 MG/ML SYRINGE IVP PRN (22:15)
[2017-11-06] MEDS ORDERED: MAGNESIUM HYDROXIDE SUSPENSION 30 ML UDCUP PO PRN (22:15)
[2017-11-06] MEDS ORDERED: ALBUTEROL SULFATE 2.5 MG/0.5 ML NEB SOLUTION NEB PRN (22:15)
[2017-11-06] MEDS ORDERED: ZOLPIDEM TARTRATE 5 MG TABLET PO PRN (22:15)
[2017-11-06] MEDS ORDERED: IPRATROPIUM BROMIDE 0.5 MG/2.5 ML NEB SOLUTION NEB PRN (22:15)
[2017-11-06] MEDS ORDERED: BISACODYL 10 MG RECTAL RECTAL SUPPOSITORY PR PRN (22:15)
[2017-11-06] MEDS ORDERED: HYDROCODONE/ACETAMINOPHEN 5-325 MG TABLET PO PRN (22:15)
[2017-11-06] MEDS ORDERED: ALBUTEROL SULFATE 2.5 MG/0.5 ML NEB SOLUTION NEB SCH (23:00)
[2017-11-06] MEDS ORDERED: IPRATROPIUM BROMIDE 0.5 MG/2.5 ML NEB SOLUTION NEB SCH (23:00)
[2017-11-06] MEDS ORDERED: SODIUM CHLORIDE 0.9% 500 ML IV ONE (23:53)
[2017-11-07] MEDS: CefTRIAXone 1 GM/DEXTROSE 50 ML IV SCH ×2 (00:14→23:26)
[2017-11-07] MEDS: HEPARIN SODIUM,PORCINE 5,000 UNITS/ML VIAL SQ SCH ×3 (00:14→21:24)
[2017-11-07] MEDS ORDERED: POTASSIUM CHL 10 MEQ/WATER 50 ML IV PRN (00:15)
[2017-11-07] MEDS: POTASSIUM CHLORIDE 20 MEQ ER TABLET PO PRN ×2 (00:15→09:30)
[2017-11-07 04:58] VITALS: BP 122/61
[2017-11-07 06:59] LABS: BASOPHILS # (AUTO) 0.01 K/uL (0.00-0.20); BASOPHILS % (AUTO) 0.1 % (0.0-2.0); EOSINOPHILS # (AUTO) 0.03 K/uL (0.00-0.70); EOSINOPHILS % (AUTO) 0.14 % (1.0-6.0); HEMATOCRIT 24.3 % (36-46); HEMOGLOBIN 7.9 g/dL (12.0-16.0); LYMPHOCYTES # (AUTO) 1.6 K/uL (1.0-4.8); LYMPHOCYTES % (AUTO) 8.5 % (22.0-44.0); MEAN CORPUSCULAR HEMOGLOBIN 29.7 pg (26.0-34.0); MEAN CORPUSCULAR HGB CONC 32.5 G/dL (31.0-37.0); MEAN CORPUSCULAR VOLUME 91 fL (80-100); MONOCYTES # (AUTO) 0.8 K/uL (0.1-1.0); MONOCYTES % (AUTO) 4.1 % (2.0-9.0); NEUTROPHILS # (AUTO) 16.4 K/uL (1.8-7.7); PLATELET COUNT (AUTO) 528 K/uL (150-450); RED BLOOD CELL COUNT(AUTO) 2.66 MIL/uL (4.00-5.20); RED CELL DISTRIBUTION WIDTH 20.6 % (11.5-14.5); WHITE BLOOD COUNT (AUTO) 18.8 K/uL (4.5-11.0)
[2017-11-07 07:01] LABS: NEUTROPHILS % (AUTO) 87.2 % (40.0-70.0)
[2017-11-07 07:45] VITALS: BP 133/71
[2017-11-07 07:52] LABS: ALANINE AMINOTRANSFERASE 16 U/L (12-78); ALBUMIN 2.1 g/dL (3.4-5.0); ANION GAP 9 mmol/L (8-16); ASPARTATE AMINOTRANSFERASE 37 U/L (15-37); BILIRUBIN,TOTAL 0.9 mg/dL (0.1-1.0); CALCIUM, TOTAL 7.5 mg/dL (8.8-10.5); CARBON DIOXIDE 27 mmol/L (22-29); CHLORIDE 103 mmol/L (98-107); GLOMERULAR FILTR. RATE CALC > 60 mL/min (>60); SODIUM SERUM 139 mmol/L (136-145); UREA NITROGEN, BLOOD 12 mg/dL (7-18)
[2017-11-07] MEDS: DOCUSATE SODIUM 100 MG CAPSULE PO SCH ×2 (08:40→21:23)
[2017-11-07] MEDS: PANTOPRAZOLE SODIUM 40 MG DR TABLET PO SCH (08:40)
[2017-11-07] MEDS: GuaiFENesin SR 600 MG ER TABLET PO SCH ×2 (08:40→21:23)
[2017-11-07] MEDS: BENZONATATE 100 MG CAPSULE PO SCH ×3 (08:40→21:23)
[2017-11-07 11:09] VITALS: BP 121/76
[2017-11-07] MEDS: ASPIRIN 81 MG CHEWABLE TABLET PO SCH (12:13)
[2017-11-07] MEDS: ATORVASTATIN CALCIUM 20 MG TABLET PO SCH (12:13)
[2017-11-07] MEDS: CARVEDILOL 6.25 MG TABLET PO SCH ×2 (12:13→21:00)
[2017-11-07 12:15] LABS: LACTIC ACID 2.5 mmol/L (0.4-2.0)
[2017-11-07 13:35] LABS: REFLEX LACTIC ACID? YES YES
[2017-11-07 14:44] LABS: MAGNESIUM 1.5 mg/dL (1.80-2.40); POTASSIUM 4.5 mmol/L (3.5-5.1)
[2017-11-07 15:00] VITALS: BP 107/60
[2017-11-07] MEDS ORDERED: MAGNESIUM SULFATE 4 GM/WATER 100 ML IV ONE (15:00)
[2017-11-07 19:45] VITALS: BP 103/53
[2017-11-07 23:24] VITALS: BP 118/62
[2017-11-08 04:22] VITALS: BP 121/71
[2017-11-08 05:57] LABS: HEMATOCRIT 23.7 % (36-46); HEMOGLOBIN 7.7 g/dL (12.0-16.0); MEAN CORPUSCULAR HEMOGLOBIN 29.5 pg (26.0-34.0); MEAN CORPUSCULAR HGB CONC 32.6 G/dL (31.0-37.0); MEAN CORPUSCULAR VOLUME 91 fL (80-100); PLATELET COUNT (AUTO) 627 K/uL (150-450); RED BLOOD CELL COUNT(AUTO) 2.61 MIL/uL (4.00-5.20); RED CELL DISTRIBUTION WIDTH 20.6 % (11.5-14.5); WHITE BLOOD COUNT (AUTO) 11.6 K/uL (4.5-11.0)
[2017-11-08 06:13] LABS: ANION GAP 2 mmol/L (8-16); CALCIUM, TOTAL 7.7 mg/dL (8.8-10.5); CARBON DIOXIDE 30 mmol/L (22-29); CHLORIDE 104 mmol/L (98-107); CREATININE 0.67 mg/dL (0.60-1.30); GLOMERULAR FILTR. RATE CALC > 60 mL/min (>60); POTASSIUM 5.4 mmol/L (3.5-5.1); SODIUM SERUM 136 mmol/L (136-145); UREA NITROGEN, BLOOD 11 mg/dL (7-18)
[2017-11-08 07:36] LABS: BAND NEUTROPHILS % (MANUAL) 1 % (1-5); BASOPHILS % (MANUAL) 1 % (0-2); LYMPHOCYTES % (MANUAL) 6 % (22-44); TOTAL CELLS COUNTED 100
[2017-11-08 07:55] VITALS: BP 123/68
[2017-11-08] MEDS: PANTOPRAZOLE SODIUM 40 MG DR TABLET PO SCH (08:11)
[2017-11-08] MEDS: CARVEDILOL 6.25 MG TABLET PO SCH ×2 (08:11→21:05)
[2017-11-08] MEDS: DOCUSATE SODIUM 100 MG CAPSULE PO SCH ×2 (08:11→21:05)
[2017-11-08] MEDS: ASPIRIN 81 MG CHEWABLE TABLET PO SCH (08:11)
[2017-11-08] MEDS: BENZONATATE 100 MG CAPSULE PO SCH ×3 (08:11→21:05)
[2017-11-08] MEDS: ATORVASTATIN CALCIUM 20 MG TABLET PO SCH (08:11)
[2017-11-08] MEDS: HEPARIN SODIUM,PORCINE 5,000 UNITS/ML VIAL SQ SCH ×2 (08:12→21:05)
[2017-11-08] MEDS: GuaiFENesin SR 600 MG ER TABLET PO SCH ×2 (08:12→21:05)
[2017-11-08] MEDS ORDERED: ASPIRIN 81 MG CHEWABLE TABLET PO SCH (09:15)
[2017-11-08 11:57] VITALS: BP 118/63
[2017-11-08 16:10] VITALS: BP 117/55
[2017-11-08 19:40] VITALS: BP 128/75
[2017-11-08] MEDS ORDERED: SODIUM CHLORIDE 0.9% 100 ML ONE (23:08)
[2017-11-08] MEDS: CefTRIAXone 1 GM/DEXTROSE 50 ML IV SCH (23:15)
[2017-11-08 23:48] VITALS: BP 124/68
[2017-11-09 04:50] VITALS: BP 121/59
[2017-11-09 06:31] LABS: HEMATOCRIT 26.3 % (36-46); HEMOGLOBIN 8.4 g/dL (12.0-16.0); MEAN CORPUSCULAR HEMOGLOBIN 29.2 pg (26.0-34.0); MEAN CORPUSCULAR HGB CONC 31.9 G/dL (31.0-37.0); MEAN CORPUSCULAR VOLUME 92 fL (80-100); PLATELET COUNT (AUTO) 728 K/uL (150-450); RED BLOOD CELL COUNT(AUTO) 2.87 MIL/uL (4.00-5.20); RED CELL DISTRIBUTION WIDTH 20.7 % (11.5-14.5)
[2017-11-09 07:04] LABS: ANION GAP 5 mmol/L (8-16); CALCIUM, TOTAL 7.7 mg/dL (8.8-10.5); CARBON DIOXIDE 27 mmol/L (22-29); CHLORIDE 102 mmol/L (98-107); CREATININE 0.85 mg/dL (0.60-1.30); GLOMERULAR FILTR. RATE CALC > 60 mL/min (>60); POTASSIUM 4.8 mmol/L (3.5-5.1); SODIUM SERUM 134 mmol/L (136-145); UREA NITROGEN, BLOOD 13 mg/dL (7-18)
[2017-11-09] MEDS: ATORVASTATIN CALCIUM 20 MG TABLET PO SCH (08:14)
[2017-11-09] MEDS: BENZONATATE 100 MG CAPSULE PO SCH ×3 (08:15→21:00)
[2017-11-09] MEDS: PANTOPRAZOLE SODIUM 40 MG DR TABLET PO SCH (08:15)
[2017-11-09] MEDS: HEPARIN SODIUM,PORCINE 5,000 UNITS/ML VIAL SQ SCH ×2 (08:15→21:00)
[2017-11-09] MEDS: CARVEDILOL 6.25 MG TABLET PO SCH ×2 (08:15→21:00)
[2017-11-09] MEDS: DOCUSATE SODIUM 100 MG CAPSULE PO SCH ×2 (08:15→21:00)
[2017-11-09] MEDS: GuaiFENesin SR 600 MG ER TABLET PO SCH ×2 (08:15→21:00)
[2017-11-09] MEDS: ASPIRIN 81 MG CHEWABLE TABLET PO SCH (08:15)
[2017-11-09 08:18] VITALS: BP 139/65
[2017-11-09 09:57] LABS: EOSINOPHILS % (MANUAL) 2 % (1-6); LYMPHOCYTES % (MANUAL) 21 % (22-44); TOTAL CELLS COUNTED 100
[2017-11-09 09:58] LABS: RBC MORPHOLOGY COMMENT ABNORMAL R
[2017-11-09 12:03] VITALS: BP 136/56
[2017-11-09 16:30] VITALS: BP 134/62
[2017-11-09 19:32] VITALS: BP 148/66
[2017-11-09] MEDS: CefTRIAXone 1 GM/DEXTROSE 50 ML IV SCH (23:12)
[2017-11-09 23:44] VITALS: BP 141/69
[2017-11-10 04:30] VITALS: BP 131/60
[2017-11-10 08:01] VITALS: BP 120/58
[2017-11-10] MEDS ORDERED: MULTIVITAMINS WITH MINERALS, THERAPEUTIC TABLET PO SCH (09:00)
[2017-11-10] MEDS: GuaiFENesin SR 600 MG ER TABLET PO SCH (09:12)
[2017-11-10] MEDS: HEPARIN SODIUM,PORCINE 5,000 UNITS/ML VIAL SQ SCH (09:12)
[2017-11-10] MEDS: CARVEDILOL 6.25 MG TABLET PO SCH (09:13)
[2017-11-10] MEDS: PANTOPRAZOLE SODIUM 40 MG DR TABLET PO SCH (09:13)
[2017-11-10] MEDS: ASPIRIN 81 MG CHEWABLE TABLET PO SCH (09:13)
[2017-11-10] MEDS: ATORVASTATIN CALCIUM 20 MG TABLET PO SCH (09:13)
[2017-11-10] MEDS: BENZONATATE 100 MG CAPSULE PO SCH ×2 (09:13→15:26)
[2017-11-10] MEDS: DOCUSATE SODIUM 100 MG CAPSULE PO SCH (09:13)
[2017-11-10] MEDS: CefTRIAXone 1 GM/DEXTROSE 50 ML IV SCH (15:26)
== END 2017-11-10 17:15 | DRG 871 ==
LOC: EMS 14:49 → 5S 20:19
PROVIDERS: ADMIT Internal Medicine; ATTEND Internal Medicine
DX: A41.9 Sepsis, unspecified organism (principal); E43 Unspecified severe protein-calorie malnutrition; I11.0 Hypertensive heart disease with heart failure; J18.9 Pneumonia, unspecified organism; E87.2 Acidosis; I24.8 Other forms of acute ischemic heart disease; I50.9 Heart failure, unspecified; N39.0 Urinary tract infection, site not specified; J44.0 Chronic obstructive pulmonary disease with (acute) lower respiratory infection; Z68.1 Body mass index [BMI] 19.9 or less, adult; D64.9 Anemia, unspecified; F03.90 Unspecified dementia, unspecified severity, without behavioral disturbance, psychotic disturbance, mood disturbance, and anxiety; E87.6 Hypokalemia; B96.89 Other specified bacterial agents as the cause of diseases classified elsewhere; E78.5 Hyperlipidemia, unspecified; H40.9 Unspecified glaucoma; I25.10 Atherosclerotic heart disease of native coronary artery without angina pectoris; I25.2 Old myocardial infarction; I35.1 Nonrheumatic aortic (valve) insufficiency; I37.1 Nonrheumatic pulmonary valve insufficiency; Z87.891 Personal history of nicotine dependence; Z90.49 Acquired absence of other specified parts of digestive tract; Z95.1 Presence of aortocoronary bypass graft; B96.5 Pseudomonas (aeruginosa) (mallei) (pseudomallei) as the cause of diseases classified elsewhere
CPT/HCPCS: 51702; 83605; 83735; 84132; 87040; 87086; 87804; 93005; 93306; 94640; 96365; 96366; 96368; 97116; 97163; 97530; 99291; J0131; J0696; J1644; J2543; J3370; J3475; J7030; J7040; J7050